=== PATIENT | male | born 1990 | race Caucasian/White ===

== ENCOUNTER 2018-01-24 18:13 | Emergency (ER) | payer OTHER ==
[2018-01-24 18:19] VITALS: BP 149/98
[2018-01-24] MEDS ORDERED: LIDOCAINE 1%/EPINEPHRINE INJ 20 ML VIAL INJ ONE (18:51)
[2018-01-24] MEDS ORDERED: ACETAMINOPHEN 325 MG TABLET PO ONE (18:52)
[2018-01-24] MEDS ORDERED: IBUPROFEN 600 MG TABLET PO ONE (18:52)
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
== END 2018-01-24 19:50 | disposition home or self-care (01) ==
LOC: ER 18:13
DX: S01.112A Laceration without foreign body of left eyelid and periocular area, initial encounter (principal); S60.221A Contusion of right hand, initial encounter; R51 Headache; Y04.0XXA Assault by unarmed brawl or fight, initial encounter; Y92.149 Unspecified place in prison as the place of occurrence of the external cause; I10 Essential (primary) hypertension; Z87.891 Personal history of nicotine dependence
CPT/HCPCS: 99284; 73130; 12011; J3490